=== PATIENT | male | born 1945 | race Hispanic/Latino ===

== ENCOUNTER 2017-10-04 11:46 | Observation (INO) | payer OTHER ==
--- NOTE | 2017-10-01 14:55 | Diagnostic Imaging Report ---
PROCEDURE: Frontal and lateral views of the chest. COMPARISON: None. INDICATIONS: PREOP FINDINGS: Lines/tubes: None. Lungs: The lungs are well inflated and clear. There is no evidence of pneumonia or pulmonary edema. Pleura: There is no pleural effusion or pneumothorax. Heart and mediastinum: The heart and the mediastinum are normal. Median sternotomy wires. mildly thickened right paratracheal stripe. Bones: No acute bony abnormality. IMPRESSION: 1. No acute cardiopulmonary disease. Dictated by: Idris Gómez M.D. on 10/01/2017 at 15:03 Electronically approved by: Idris Gómez M.D. on 10/01/2017 at 15:03
[2017-10-01 15:10] LABS: BASOPHILS % 0.8 % (0.0-1.0); EOSINOPHILS # (AUTO) 0.2 (0.0-0.4); EOSINOPHILS % 2.9 % (0.0-6.0); HEMATOCRIT 41.7 % (38.2-49.6); HEMOGLOBIN 14.1 g/dL (14.0-18.0); LYMPHOCYTES # (AUTO) 1.9 (1.0-3.2); LYMPHOCYTES % 35.8 % (18.0-39.1); MEAN CORPUSCULAR HEMOGLOBIN 29.6 pg (28-32); MEAN CORPUSCULAR HGB CONC 33.8 g/dL (31-35); MEAN CORPUSCULAR VOLUME 87.4 fL (81-99); MONOCYTES # (AUTO) 0.5 (0.2-0.8); MONOCYTES % 10.1 % (4.4-11.3); NEUTROPHILS # (AUTO) 2.6 (2.1-6.9); NEUTROPHILS % 50.2 % (38.7-80.0); PLATELET COUNT 235 x10e3/uL (140-360); RED BLOOD COUNT 4.77 x10e6/uL (4.3-5.7); RED CELL DISTRIBUTION WIDTH 13.4 % (11.7-14.4)
[~2017-10-04] VITALS: Ht 165.1 cm; Wt 70.3 kg
[~2017-10-04 11:46] MED LIST: ASPIR 8181 MG PO; CALCIUM ACETAT667 MG PO; CLONIDINE HCL0.1 MG PO; LISINOPRIL20 MG PO; LOVASTATIN20 MG PO
[2017-10-04] MEDS ORDERED: CEFAZOLIN SOD 1 GM/NS 50ML 50 ML IV ONE (11:47)
[2017-10-04] MEDS ORDERED: CLINDAMYCIN 300MG 50 ML IV ONE (11:48)
[2017-10-04] MEDS ORDERED: GENTAMICIN SULFATE 160 MG in SODIUM CHLORIDE 0.9% 100 ML 100 ML IV SCH (12:00)
[2017-10-04] MEDS: SOD CHL 0.45%/POT CHL 20MEQ 1,000 ML IV SCH ×2 (15:11→18:36)
[2017-10-04] MEDS ORDERED: ACETAMINOPHEN 1000 MG/100 ML IV PRN (15:15)
[2017-10-04] MEDS ORDERED: DIPHENHYDRAMINE HCL INJ 50 MG/ML VIAL IM PRN (15:15)
[2017-10-04] MEDS ORDERED: DIPHENHYDRAMINE HCL 25 MG CAP PO PRN (15:15)
[2017-10-04] MEDS ORDERED: NALOXONE HCL INJ 0.4 MG/ML AMP IV PRN (15:15)
[2017-10-04] MEDS ORDERED: ONDANSETRON HCL INJ 2 MG/ML VIAL IV PRN (15:15)
[2017-10-04] MEDS ORDERED: BELLADONNA/OPIUM 60 MG SUPP PR PRN (15:15)
[2017-10-04] MEDS ORDERED: CEFTRIAXONE SOD 1 GM VIAL IV SCH ×2 (15:15→16:30)
[2017-10-04 16:00] VITALS: BP 141/74
[2017-10-04] MEDS ORDERED: WATER STERILE 10 ML VIAL INJ PRN (16:30)
[2017-10-04] MEDS: DOCUSATE SODIUM 100 MG CAP PO SCH (17:15)
[2017-10-04] MEDS ORDERED: HYDROCODONE/APAP 10MG-325MG TAB PO PRN (17:30)
[2017-10-04 17:42] VITALS: BP 141/74
[2017-10-04] MEDS ORDERED: NEOSTIGMINE 5 MG/5ML SYR ONE (17:49)
[2017-10-04] MEDS ORDERED: GLYCOPYRROLATE INJ 1MG/ 5 ML SYR ONE (17:49)
[2017-10-04] MEDS ORDERED: DESFLURANE 240 ML BTL INH ONE (17:49)
[2017-10-04] MEDS ORDERED: ROCURONIUM BROMIDE 10 MG/ML 5ML VIAL ONE (17:49)
[2017-10-04] MEDS ORDERED: PROPOFOL IV EMULSION 10 MG/ML 20 ML VIAL ONE (17:49)
[2017-10-04] MEDS ORDERED: DEXAMETHASONE SOD PHOS INJ 4 MG/ML VIAL ONE (17:49)
[2017-10-04] MEDS ORDERED: LIDOCAINE HCL 2% LOCAL INJ 5 ML SDV VIAL INJ ONE (17:49)
[2017-10-04] MEDS ORDERED: FENTANYL CITRATE/PF 100MCG/2 ML INJ ONE (18:11)
[2017-10-04] MEDS ORDERED: MIDAZOLAM HCL 2 MG/2 ML VIAL ONE (18:11)
--- NOTE | 2017-10-04 18:28 | History and Physical ---
WELL FLOW OPERATOR: Dr. Reagan Mayberry. PRIMARY CARE PHYSICIAN: ____ [place]. CHIEF COMPLAINT: Impotence status post failed penile implantation with status post cystoscopy and TURP. HISTORY: This is a 72-year-old male with impotence and enlarged prostate. The patient was scheduled for penile implant, but because of the structure of the urinary bladder and the penis the patient's procedure was unsuccessful, but he did have the area repaired and prepped for another surgery at a later date. The patient is otherwise stable at this time. He has baseline hypogonadism with incomplete urinary bladder emptying secondary to urinary bladder neck obstruction. He also has enlarged prostate status post prostatectomy. Patient also has prostate cancer by history with post radiation treatment as well. Overall the patient is stable at this time. PAST MEDICAL HISTORY: As above, hypertension. MEDICATIONS: Aspirin, calcium acetate and Zestril. ALLERGIES: NO KNOWN DRUG ALLERGIES. SOCIAL HISTORY: Patient does not smoke or use alcohol. No recreational drugs. REVIEW OF SYSTEMS: Postop pain, adequate. PHYSICAL EXAMINATION: . GENERAL: The patient is not in acute distress. He is awake. VITAL SIGNS: Temperature 97, blood pressure 101/74, pulse rate 63, respirations 20. HEENT: Normocephalic, atraumatic, anicteric. NECK: Supple. PULMONARY: Clear. CARDIOVASCULAR: Regular rate and rhythm. ABDOMEN: Soft. : Shepherd catheter in place, irrigating. EXTREMITIES: No cyanosis or edema. NEUROLOGIC: No focal deficit. LABORATORY: None today but on October 01, 2017, the WBC is otherwise unremarkable. IMPRESSION 1. Status post cystoscopy with urinary bladder neck narrowing repair, cystoscopy. 2. Failed penile implant due to structural problems as mentioned. PLAN: Continue with postoperative care. The patient will follow up with Dr. Reagan Mayberry for further planning in the near future. In the meantime he is stable. Job#: [id number]
[2017-10-04 20:00] VITALS: BP 115/66
[2017-10-05] VITALS: BP 103/59
[2017-10-05 04:00] VITALS: BP 115/60
[2017-10-05 07:06] LABS: BASOPHILS % 0.1 % (0.0-1.0); HEMATOCRIT 39.7 % (38.2-49.6); HEMOGLOBIN 13.4 g/dL (14.0-18.0); MEAN CORPUSCULAR HEMOGLOBIN 28.9 pg (28-32); MEAN CORPUSCULAR HGB CONC 33.8 g/dL (31-35); MEAN CORPUSCULAR VOLUME 85.7 fL (81-99); MONOCYTES # (AUTO) 0.5 (0.2-0.8); MONOCYTES % 6.6 % (4.4-11.3); NEUTROPHILS # (AUTO) 5.9 (2.1-6.9); NEUTROPHILS % 79.9 % (38.7-80.0); PLATELET COUNT 219 x10e3/uL (140-360); RED BLOOD COUNT 4.63 x10e6/uL (4.3-5.7); RED CELL DISTRIBUTION WIDTH 13.3 % (11.7-14.4)
[2017-10-05 07:28] LABS: ANION GAP 9.8 mmol/L (8-16); BLOOD UREA NITROGEN 17 mg/dL (7-26); BUN/CREATININE RATIO 18 (6-25); CARBON DIOXIDE 25 mmol/L (22-29); CHLORIDE 107 mmol/L (98-107); CREATININE, SERUM 0.95 mg/dL (0.72-1.25); EST GLOMERULAR FILTRATION RATE > 60 ML/MIN (60-); GLUCOSE 113 mg/dL (74-118); POTASSIUM 4.8 mmol/L (3.5-5.1); SODIUM 137 mmol/L (136-145)
[2017-10-05 08:00] VITALS: BP 129/60
[2017-10-05] MEDS: DOCUSATE SODIUM 100 MG CAP PO SCH (08:50)
[2017-10-05] MEDS ORDERED: WATER STERILE 10 ML VIAL IV SCH (11:30)
[2017-10-05 12:09] VITALS: BP 134/69
[2017-10-05] MEDS ORDERED: TYLENOL WITH C1 EACH PO (14:10)
[2017-10-05] MEDS ORDERED: CEFUROXIME500 MG PO (14:11)
--- NOTE | 2017-10-05 16:22 | Discharge Summary ---
PRIMARY CARE PHYSICIAN: Dr. Jing Shrestha. CHIEF OPTOMETRY SERVICE: Dr. Reagan Mayberry. FINAL DIAGNOSES: 1. Status post cystoscopy with urinary bladder neck stenosis repair. 2. Impotency. 3. Unsuccessful placement of a penile prosthesis. SUMMARY: Patient is a 72-year-old male who came in for a possible placement of penile prosthesis. However, the patient has urinary bladder neck stenosis, difficult procedures. Patient subsequently had urinary neck bladder repair. Please review Dr. Reagan Mayberry's operating note for the correctness of these procedures. The dictation for the operating note is still pending. The patient is stable. Otherwise, medically stable to go home. He is comfortable today. Shepherd catheter will be discontinued once he is able to urinate and the patient will go home today. He will resume his home medications. Prescription given by Dr. Reagan Mayberry. Job#: [id number] GH
--- NOTE | 2017-11-29 09:17 | Operative Report ---
DATE OF PROCEDURE: October 04, 2017 PREOPERATIVE DIAGNOSIS: Organic impotence. POSTOPERATIVE DIAGNOSES: 1. Organic impotence. 2. 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 OPERATION PERFORMED: Cystourethroscopy with transurethral resection of severe bladder neck contracture. ANESTHESIA: General. COMPLICATIONS: None. CLINICAL SUMMARY: Aquilino Muniz is a 72-year-old man who has had a complicated urological history. The patient has had 3 previous transurethral resections of prostate procedures. He has also had transurethral resection of his bladder neck contracture on 3 different occasions. The patient subsequently also underwent external beam radiotherapy in 2011. The patient is brought to the operating room today for placement of a penile prosthesis due to organic impotence that was refractory to all other forms of management. Plans were there to perform this procedure for definitive management of his impotence. He is aware of the risks of bleeding, infection, injury to adjacent structures, need for additional procedures, and the fact that he will have a permanent implant. He understood all these risks and elected to proceed. OPERATIVE PROCEDURE IN DETAIL: Informed consent was verified. Aquilino Muniz was properly identified, taken to the operating room and placed on the operating table in supine position. Anesthesia was uneventfully begun. The patient's genitalia were shaved, and the patient's abdomen and genitalia were prepared and draped in usual sterile fashion. Attempt was made to place the Shepherd catheter and this attempt was unsuccessful. We therefore repositioned the patient in dorsal lithotomy position with all pressure points well padded. Cystoscopy was performed. We entered the patient's urethra. We guided the cystoscope through the patient's normal urethra through the sphincteric region and into the prostate bed. The prostate bed appeared wide open, but there was a severe bladder neck contracture. It was obvious that this needed management prior to placement of the penile prosthesis. We removed the cystoscope sheath and replaced it with the resectoscope sheath. We then utilized the Paolo knife electrode to incise the bladder neck at the 5 and 7 o'clock position down past the scar tissue into friable non-scar tissue. This resulted in a wide opening of the patient's bladder neck contracture and resolution thereof. Panendoscopy of the urinary bladder revealed no suspicious mucosal lesions, no tumors, trabeculations were noted. The resectoscope was withdrawn. The Shepherd catheter was placed. It was irrigated to and fro to ensure it worked properly, and the patient was uneventfully reversed from anesthesia and taken to recovery room in stable condition. There were no complications to the procedure. He tolerated the procedure well. Plans will be to admit the patient for observation and discharge the patient following morning should he have no problems. Plans will then be to monitor the patient for the next several months. After approximately 2 months, we plan to perform cystoscopy again to ensure his bladder neck is no longer obstructed. If that is the case, then there should be no reason why we cannot resume our plan of implantation of the penile prosthesis. Job#: [id number]
== END 2017-10-05 14:29 | disposition home or self-care (01) ==
LOC: OR 11:46 → MED/SURG2 15:41 → MED/SURG 15:53
PROVIDERS: ADMIT Internal Medicine; ATTEND Internal Medicine
DX: N40.1 Benign prostatic hyperplasia with lower urinary tract symptoms (principal); N13.8 Other obstructive and reflux uropathy; N52.9 Male erectile dysfunction, unspecified; I10 Essential (primary) hypertension
CPT/HCPCS: 36415 ×2; 52500; 71020; 80048; 85025 ×2; 93005; G0378 ×2; J0696; J1100; J1580; J2001; J2250

== ENCOUNTER 2018-01-03 11:23 | Observation (INO) | payer OTHER ==
[2017-12-31 10:40] LABS: BASOPHILS % 0.8 % (0.0-1.0); EOSINOPHILS # (AUTO) 0.1 (0.0-0.4); EOSINOPHILS % 2.3 % (0.0-6.0); HEMATOCRIT 40.3 % (38.2-49.6); HEMOGLOBIN 13.5 g/dL (14.0-18.0); LYMPHOCYTES # (AUTO) 1.6 (1.0-3.2); LYMPHOCYTES % 31.7 % (18.0-39.1); MEAN CORPUSCULAR HEMOGLOBIN 28.6 pg (28-32); MEAN CORPUSCULAR HGB CONC 33.5 g/dL (31-35); MEAN CORPUSCULAR VOLUME 85.4 fL (81-99); MONOCYTES # (AUTO) 0.7 (0.2-0.8); NEUTROPHILS # (AUTO) 2.7 (2.1-6.9); PLATELET COUNT 255 x10e3/uL (140-360); RED BLOOD COUNT 4.72 x10e6/uL (4.3-5.7); RED CELL DISTRIBUTION WIDTH 13.6 % (11.7-14.4)
[~2018-01-03] VITALS: Ht 162.6 cm; Wt 79.8 kg
[~2018-01-03 11:23] MED LIST changes: +CEFUROXIME500 MG PO; +LOVASTATIN10 MG PO; +TYLENOL WITH C1 EACH PO
[2018-01-03] MEDS ORDERED: GENTAMICIN 80MG/NS 100 ML 200 ML IV ONE (11:26)
[2018-01-03] MEDS ORDERED: LEVOFLOXACIN 500MG/D5W 100ML 100 ML IV ONE (11:26)
[2018-01-03] MEDS ORDERED: CLINDAMYCIN PHOS 900MG/ D5W 50 50 ML IV ONE (11:26)
--- OUTSIDE RECORDS SUMMARY | 2018-01-03 11:26 | XMS REPORT ---
Author Author [facility] Address Unknown Phone Unavailable Care Team Providers Care Overhauler Helper Name Role Phone LEAH URENA Unavailable Unavailable Problems This patient has no known problems. Allergies, Adverse Reactions, Alerts This patient has no known allergies or adverse reactions. Medications This patient has no known medications. Results Test Description Test Time Test Comments Text Results Atomic Results Result Comments CHEST 2 VIEWS [place] [address] Patient Name: FELICIA KWOK MR #: [id number] : 1945 Age/Sex: 72/M Req # : [id number] Adm Physician: Ordered by: LEAH URENA MD Report #: [id number] Location: OR Room/Bed: Procedure: [id number] DX/CHEST 2 VIEWS Exam Date: 10/01/17 Exam Time: 1435 REPORT STATUS: Signed PROCEDURE: Frontal and lateral views of the chest. COMPARISON: None. INDICATIONS: PREOP FINDINGS : Lines/tubes: None. Lungs: The lungs are well inflated and clear. There is no evidence of pneumonia or pulmonary edema. Pleura: There is no pleural effusion or pneumothorax. Heart and mediastinum: The heart and the mediastinum are normal. Median sternotomy wires. mildly thickened right paratracheal stripe. Bones: No acute bony abnormality. IMPRESSION: 1. No acute cardiopulmonary disease. Dictated by: Idris Gómez M.D. on 10/01/2017 at 15:03 Electronically approved by: Idris Gómez M.D. on 10/01/2017 at 15:03 Dictated By: IDRIS GÓMEZ MD 1503 Transcribed By: JAYY on 10/01/17 1503 COPY TO: LEAH URENA MD
--- OUTSIDE RECORDS SUMMARY | 2018-01-03 11:26 | XMS REPORT | Clinical Summary ---
Author Author [facility] Address Unknown Phone Unavailable Care Team Providers Care Histologic Aide Name Role Phone Christina Shrestha MD PCP Allergies No Known Allergies Current Medications Prescription Sig. Disp. Refills Start End Date Status Date lisinopril Take 5 mg by mouth daily. Active (PRINIVIL,ZESTRIL) 5 mg tablet omeprazole (PriLOSEC) 10 TAKE 1 CAPSULE(10 MG) BY 90 capsule 1 Active MG capsuleIndications: MOUTH DAILY 17 Pharyngitis, chronic omeprazole (PriLOSEC) 10 TAKE 1 CAPSULE(10 MG) BY 30 capsule 0 Active MG capsuleIndications: MOUTH DAILY 17 Pharyngitis, chronic amoxicillin (AMOXIL) 250 Take 5 mL (250 mg total) 75 mL 0 03/08/20 03/13/20 mg/5 mL suspension by mouth 3 (three) times 17 17 a day for 5 days. omeprazole (PriLOSEC) 10 Take 1 capsule (10 mg 30 capsule 1 05/17/20 05/17/20 Discontin MG capsuleIndications: total) by mouth daily for 17 17 ued Pharyngitis, chronic 60 days. Active Problems Problem Noted Date Pharyngitis, chronic 05/17/2017 Encounters Date Type Specialty Care Team Description 07/22/2017 Refill Otolaryngology Lavell Kaufman MD Pharyngitis, chronic 06/24/2017 Office Visit Otolaryngology Lavell Kaufman MD Pharyngitis, chronic (Primary Dx) 05/17/2017 Office Visit Otolaryngology Lavell Kaufman MD Pharyngitis, chronic (Primary Dx) 05/17/2017 Refill Otolaryngology Lavell Kaufman MD Pharyngitis, chronic 03/08/2017 [facility] General Surgery Lavell Kaufman MD Other diseases of vocal Encounter cords 03/08/2017 Anesthesia General Surgery Farhad Sims Event 03/08/2017 Procedure Pass General Surgery 03/08/2017 Surgery General Surgery Lavell Kaufman MD LARYNGOSCOPY, DIRECT MICRO WITH BIOPSY 02/22/2017 [facility] Radiology Lavell Kaufman MD Other diseases of vocal Encounter cords after 01/02/2017 Family History Relation Name Status Comments Father Mother Social History Tobacco Use Types Packs/Day Years Used Date Former Smoker Cigarettes 1 15 Smokeless Tobacco: Never Used Alcohol Use Drinks/Week oz/Week Comments No Sex Assigned at Date Recorded Not on file Last Filed Vital Signs Vital Sign Reading Time Taken Blood Pressure 122/71 06/24/2017 9:54 AM CDT Pulse 67 06/24/2017 9:54 AM CDT Temperature 36.3 C (97.4 F) 03/08/2017 11:14 AM CDT Respiratory Rate 18 03/08/2017 11:45 AM CDT Oxygen Saturation 98% 03/08/2017 11:45 AM CDT Inhaled Oxygen - - Concentration Weight 73 kg (161 lb) 06/24/2017 9:54 AM CDT Height 157.5 cm (5' 2") 06/24/2017 9:54 AM CDT Body Mass Index 29.45 06/24/2017 9:54 AM CDT Plan of Treatment Health Maintenance Due Date Last Done Comments COLONOSCOPY 01/07/1994 ZOSTER VACCINE 2004 PNEUMOCOCCAL 01/07/2009 POLYSACCHARIDE VACCINE AGE 65 AND OVER PNEUMOCOCCAL-13 01/07/2009 INFLUENZA VACCINE 05/25/2017 Procedures Procedure Name Priority Date/Time Associated Diagnosis Comments MD AN ELECTIVE Routine 03/08/2017 ENDOTRACHEAL AIRWAY 10:01 AM CDT Procedure Note - Farhad Sims - 03/08/2017 10:00 AM CDT Airway Date/Time: 03/08/2017 9:39 AM Performed by: ERENDIRA MALONE Authorized by: ERENDIRA MALONE Location: OR Urgency: Elective Difficult Airway: No Anesthesio logist: ERENDIRA MALONE Other Anesthesia Staff: FARHAD SIMS Performed by: anesthesio logist and other anesthesia staff Preoxygena frank with 100% O2: Yes C-spine Precaution s Maintained Throughout : Yes Mask Ventilatio n: Easy mask Final Airway Type: Endotrache al airway Final Endotrache al Airway: ETT Cuffed: Yes Technique Used: Direct laryngosco py Devices/Me thods Used in Placement: Intubatin g stylet Insertion Site: Oral Blade Type: Vinson Laryngosco pe Blade/Srikanth olaryngosc ope Blade Size: 2 ETT Size (mm): 7.5 Cuff at minimum occlusion pressure: Yes Measured from: Teeth ETT to Teeth (cm): 21 Placement Verified by: CO2 detection, direct visualizat ion and equal breath sounds Laryngosco pic view: Grade IIa - partial view of glottis Rapid Sequence Induction (RSI): No Modified RSI: No Number of Attempts at Approach: 1 TONSILLECTOMY 03/08/2017 DISEASE OF VOCAL 8:45 AM CDT CORD,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 LARYNGOSCOPY, DIRECT 03/08/2017 DISEASE OF VOCAL MICRO WITH BIOPSY 8:45 AM CDT CORD,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 Status post median sternotomy. Heart size and pulmonary vasculature are normal. Lungs are clear. No effusion or pneumothorax noted. There are degenerative changes in the spine. [facility]-[id number] Procedure Note Interface, Radiology Results Incoming - 02/22/2017 10:21 AM CDT EXAMINATION: XR CHEST 2 VW CLINICAL HISTORY: Preoperative evaluation COMPARISON: 05/30/2006 IMPRESSION: No active disease in the chest. Status post median sternotomy. Heart size and pulmonary vasculature are normal. Lungs are clear. No effusion or pneumothorax noted. There are degenerative changes in the spine. [facility]-[id number] * ECG 12 lead (02/22/2017 9:36 AM) Component Value Ref Range Ventricular rate 55 Atrial rate 55 MD interval 178 QRSD interval 96 QT interval 410 QTC interval 392 P axis 1 48 QRS axis 1 31 T wave axis 60 EKG impression Sinus bradycardia-Possible Left atrial enlargement-Abnormal ECG-No previous ECGs available- Specimen Performing Laboratory [facility] [address] [address] [place] [address] * Partial thromboplastin time, activated (02/22/2017 9:11 AM) Component Value Ref Range PTT 27.9 23.0 - 36.0 sec Comment: PTT therapeutic range for unfractionated heparin is 61.0-112.0 seconds which corresponds to Anti-Xa 0.3-0.7 U/ml. Specimen Performing Laboratory Blood [facility] DEPARTMENT OF PATHOLOGY AND GENOMIC MEDICINE [id number] [place] [address] [place] [address] * Prothrombin time with INR (02/22/2017 9:11 AM) Component Value Ref Range Prothrombin time 13.4 12.0 - 15.0 sec INR 1.0 Comment: The International Normalized Ratio (INR) is a therapeutic monitoring tool for patients who are stable on oral anticoagulant therapy. An INR of 2.0-3.0 is suggested for deep vein thrombosis/pulmonary embolism. Specimen Performing Laboratory Blood [facility] DEPARTMENT OF PATHOLOGY AND GENOMIC MEDICINE [id number] [place] [address] [place] [address] * CBC hemogram (02/22/2017 9:11 AM) Component Value Ref Range WBC 5.09 4.50 - 11.00 k/uL RBC 4.97 4.40 - 6.00 m/uL HGB 14.1 14.0 - 18.0 g/dL HCT 42.6 41.0 - 51.0 % MCV 85.7 82.0 - 100.0 fL MCH 28.4 27.0 - 34.0 pg MCHC 33.1 31.0 - 37.0 g/dL RDW - SD 44.6 37.0 - 55.0 fL MPV 11.3 8.8 - 13.2 fL Platelet count 237 150 - 400 k/uL Nucleated RBC 0.00 /100 WBC Specimen Performing Laboratory Blood [facility] DEPARTMENT OF PATHOLOGY AND [facility] MEDICINE [id number] [place] [address] [place] [address] after 01/02/2017 Insurance Payer Benefit Subscriber ID Type Phone Address Plan / Group [employer] xxxxxxxxx [facility]
[2018-01-03] MEDS ORDERED: ONDANSETRON HCL INJ 2 MG/ML VIAL ONE (11:27)
[2018-01-03] MEDS ORDERED: DEXAMETHASONE SOD PHOS INJ 4 MG/ML VIAL ONE (11:27)
[2018-01-03] MEDS ORDERED: LIDOCAINE HCL 2% LOCAL INJ 5 ML SDV VIAL INJ ONE (11:27)
[2018-01-03] MEDS ORDERED: SEVOFLURANE INHAL SOLN 250 ML PEN BTL ONE (11:27)
[2018-01-03] MEDS ORDERED: PROPOFOL IV EMULSION 10 MG/ML 20 ML VIAL ONE (11:27)
[2018-01-03] MEDS ORDERED: MUPIROCIN 2% OINT 22 GM TUBE ONE (13:09)
[2018-01-03] MEDS ORDERED: BACITRACIN 50,000 UNIT VIAL ONE (13:09)
[2018-01-03] MEDS ORDERED: BUPIVACAINE HCL 0.5% INJ 30 ML VIAL INJ ONE (14:05)
[2018-01-03] MEDS ORDERED: FENTANYL CITRATE/PF 100MCG/2 ML INJ ONE (15:03)
[2018-01-03] MEDS ORDERED: MORPHINE SULFATE 1 MG/ML 30ML PCA IV PRN (16:00)
[2018-01-03] MEDS ORDERED: ACETAMINOPHEN 1000 MG/100 ML IV PRN (16:00)
[2018-01-03] MEDS ORDERED: DIPHENHYDRAMINE HCL INJ 50 MG/ML VIAL IM PRN (16:00)
[2018-01-03] MEDS ORDERED: DIPHENHYDRAMINE HCL 25 MG CAP PO PRN (16:00)
[2018-01-03] MEDS ORDERED: NALOXONE HCL INJ 0.4 MG/ML AMP IV PRN (16:00)
[2018-01-03] MEDS ORDERED: ONDANSETRON HCL INJ 2 MG/ML VIAL IV PRN (16:00)
[2018-01-03] MEDS ORDERED: MORPHINE SULFATE 1 MG/ML 30ML PCA ONE (16:17)
--- OUTSIDE RECORDS SUMMARY | 2018-01-03 16:48 | XMS REPORT | Clinical Summary ---
Author Author [facility] Address Unknown Phone Unavailable Care Team Providers Care Psychiatric Social Worker Supervisor Name Role Phone Christina Shrestha MD PCP [...] Otolaryngology Lavell Kaufman MD Pharyngitis, chronic 03/08/2017 [facility] General Surgery Lavell Kaufman MD Other diseases of vocal Encounter cords 03/08/2017 Anesthesia General Surgery Farhad Sims Event 03/08/2017 Procedure Pass General Surgery 03/08/2017 Surgery General Surgery Lavell Kaufman MD LARYNGOSCOPY, DIRECT MICRO WITH BIOPSY 02/22/2017 [facility] Radiology Lavell Kaufman MD Other diseases of [...] Procedure Name Priority Date/Time Associated Diagnosis Comments NC AN ELECTIVE Routine 03/08/2017 ENDOTRACHEAL AIRWAY 10:01 [...] for PDF Lab Report Specimen Performing Laboratory [facility] DEPARTMENT OF PATHOLOGY AND GENOMIC MEDICINE [id number] [place] [address] [place] [address] * XR Chest 2 Vw (02/22/2017 10:10 AM) Specimen Performing Laboratory [facility] [address] [place] [address] Narrative EXAMINATION:XR CHEST 2 VW CLINICAL HISTORY:Preoperative evaluation COMPARISON:05/30/2006 IMPRESSION: No active disease in the chest. Status post median sternotomy. Heart size and pulmonary vasculature are normal. Lungs are clear. No effusion or pneumothorax noted. There are degenerative changes in the spine. [facility]-[id number] Procedure Note Interface, Radiology Results Incoming - 02/22/2017 10:21 AM CDT EXAMINATION: XR CHEST 2 VW CLINICAL HISTORY: Preoperative evaluation COMPARISON: 05/30/2006 IMPRESSION: No active disease in the chest. Status post median sternotomy. Heart size and pulmonary vasculature are normal. Lungs are clear. No effusion or pneumothorax noted. There are degenerative changes in the spine. [facility]-[id number] * ECG 12 lead (02/22/2017 9:36 AM) Component Value Ref Range Ventricular rate 55 Atrial rate 55 NC interval 178 QRSD interval 96 QT interval 410 QTC interval 392 P axis 1 48 QRS axis 1 31 T wave axis 60 EKG impression Sinus bradycardia-Possible Left atrial enlargement-Abnormal ECG-No previous ECGs available- Specimen Performing Laboratory [facility] [address] [place] [address] * Partial thromboplastin time, activated (02/22/2017 9:11 AM) Component Value Ref Range PTT 27.9 23.0 - 36.0 sec Comment: PTT therapeutic range for unfractionated heparin is 61.0-112.0 seconds which corresponds to Anti-Xa 0.3-0.7 U/ml. Specimen Performing Laboratory Blood [facility] DEPARTMENT OF PATHOLOGY AND GENOMIC MEDICINE [id number] [place] [address] [place] [address] * Prothrombin time with INR (02/22/2017 9:11 AM) Component Value Ref Range Prothrombin time 13.4 12.0 - 15.0 sec INR 1.0 Comment: The International Normalized Ratio (INR) is a therapeutic monitoring tool for patients who are stable on oral anticoagulant therapy. An INR of 2.0-3.0 is suggested for deep vein thrombosis/pulmonary embolism. Specimen Performing Laboratory Blood [facility] DEPARTMENT OF PATHOLOGY AND GENOMIC MEDICINE [id number] [place] [address] [place] [address] * CBC hemogram (02/22/2017 9:11 AM) Component [...] 0.00 /100 WBC Specimen Performing Laboratory Blood [facility] DEPARTMENT OF PATHOLOGY AND [facility] MEDICINE [id number] [place] [address] [place] [address] after 01/02/2017 Insurance Payer Benefit Subscriber ID Type Phone Address Plan / Group [employer] xxxxxxxxx [facility]
[2018-01-03 17:12] VITALS: BP 146/70
[2018-01-03] MEDS: DOCUSATE SODIUM 100 MG CAP PO SCH (17:46)
[2018-01-03 19:45] VITALS: BP 146/70
[2018-01-03 20:00] VITALS: BP 110/66
[2018-01-03] MEDS: D5.45%NS/KCL 20MEQ 1,000 ML IV SCH (22:22)
[2018-01-03] MEDS: PIPERACILLIN/TAZO 2.25 GM 50 ML IV SCH (22:24)
[2018-01-03] MEDS: CLINDAMYCIN 300MG 50 ML IV SCH (22:31)
[2018-01-03 22:38] VITALS: BP 110/66
[2018-01-04] VITALS: BP 111/58
[2018-01-04 04:00] VITALS: BP 123/64
[2018-01-04] MEDS: D5.45%NS/KCL 20MEQ 1,000 ML IV SCH (04:33)
[2018-01-04] MEDS: PIPERACILLIN/TAZO 2.25 GM 50 ML IV SCH (05:00)
[2018-01-04] MEDS: CLINDAMYCIN 300MG 50 ML IV SCH (05:40)
[2018-01-04 06:25] LABS: BASOPHILS % 0.1 % (0.0-1.0); HEMATOCRIT 37.1 % (38.2-49.6); HEMOGLOBIN 12.4 g/dL (14.0-18.0); LYMPHOCYTES # (AUTO) 0.8 (1.0-3.2); MEAN CORPUSCULAR HEMOGLOBIN 28.6 pg (28-32); MEAN CORPUSCULAR HGB CONC 33.4 g/dL (31-35); MEAN CORPUSCULAR VOLUME 85.7 fL (81-99); MONOCYTES # (AUTO) 0.6 (0.2-0.8); MONOCYTES % 6.2 % (4.4-11.3); NEUTROPHILS % 85.4 % (38.7-80.0); PLATELET COUNT 233 x10e3/uL (140-360); RED BLOOD COUNT 4.33 x10e6/uL (4.3-5.7); RED CELL DISTRIBUTION WIDTH 13.6 % (11.7-14.4)
[2018-01-04 06:42] LABS: ANION GAP 12.5 mmol/L (8-16); BLOOD UREA NITROGEN 13 mg/dL (7-26); BUN/CREATININE RATIO 13 (6-25); CALCIUM 8.4 mg/dL (8.4-10.2); CARBON DIOXIDE 24 mmol/L (22-29); CHLORIDE 105 mmol/L (98-107); CREATININE, SERUM 0.97 mg/dL (0.72-1.25); EST GLOMERULAR FILTRATION RATE > 60 ML/MIN (60-); GLUCOSE 126 mg/dL (74-118); POTASSIUM 4.5 mmol/L (3.5-5.1); SODIUM 137 mmol/L (136-145)
[2018-01-04 07:46] VITALS: BP 117/63
[2018-01-04] MEDS ORDERED: ONDANSETRON HCL 4 MG ORAL DISINTEGRATING TAB PO PRN (08:30)
[2018-01-04] MEDS ORDERED: ACETAMINOPHEN/CODEINE 300MG - 30MG TAB PO PRN (08:30)
[2018-01-04] MEDS: DOCUSATE SODIUM 100 MG CAP PO SCH (08:44)
[2018-01-04 11:33] VITALS: BP 137/73
--- NOTE | 2018-02-24 02:38 | Operative Report ---
DATE OF PROCEDURE: January 03, 2018 PREOPERATIVE DIAGNOSES: 1. Organic impotence. 2. Recurrent bladder neck contracture. POSTOPERATIVE DIAGNOSES: 1. Organic impotence. 2. Recurrent bladder neck contracture. OPERATIONS PERFORMED: 1. Cystourethroscopy (separate procedure performed to ensure that the patient's bladder neck contracture is no longer clinically significant). 2. Implantation of multicomponent inflatable penile prosthesis (separate procedure performed for the organic impotence). ANESTHESIA: General. COMPLICATIONS: None. CLINICAL SUMMARY: Aquilino Muniz is a 72-year-old man with recurrent bladder neck contracture. He is status post transurethral resection of the prostate. The patient has organic impotence and has failed all forms of management attempts for his organic impotence. The patient elected to proceed with implantation of penile prosthesis. Previously, he was scheduled to have this done, however, he was found to have severe bladder neck contracture. He underwent transurethral resection of the bladder neck, and is brought to the operating room to both ensure the bladder neck contracture is no longer clinically significant as well as implant his penile prosthesis. He is aware of the risks of bleeding, infection, injury to adjacent structures, erosion, need for additional procedures, and irreversibility of this type of procedure. He understood all these risks and elected to proceed. OPERATIVE PROCEDURE IN DETAIL: Informed consent was verified. Aquilino Muniz was properly identified, taken to the operating room and placed on the operating table in supine position. Anesthesia was uneventfully begun. The patient's genitalia were shaved, prepared for 10 minutes and draped in usual sterile fashion. Flexible cystourethroscopy was performed. The flexible cystoscope was inserted under direct vision into the patient's urethra. It was guided down the unremarkable urethra through the normal sphincteric region, in the prostate bed, which was wide open, and there was minimum amount of scar tissue remaining, but the bladder neck contracture was no longer clinically significant. It was wide open at the bladder neck. Panendoscopy revealed trabeculations. There were no tumors. There were no suspicious lesions. The cystoscope was withdrawn. A Shepherd catheter was placed. A transverse penoscrotal incision was then made, carried through all layers of the scrotum. We isolated both corpora cavernosa. Incision was made in each corpora cavernosa and dilation was carried out. Following dilation, measurements bilaterally totalled 19 cm for both corpora cavernosa. We elected to proceed with an 18 cm cylinder with 1 cm rear-tip extenders. We pre-placed Vicryl sutures. We then placed the prosthesis cylinders into their respective corpora cavernosa and proceeded with placing of the distal tip well into the glans. The previously placed sutures were tied down thus achieving perfect hemostasis. At this point in time, subdartos pouch was developed for the pump and the pump was placed there. We then proceeded with placement of the reservoir. [place] was filled with 65 mL of saline and the final connections were made utilizing the Quick Connect system. Copious irrigation was performed at every layer of the closure. Copious irrigation was performed with antibiotic irrigant during the implantation. The scrotum was approximated in 4 layers utilizing absorbable suture. Sterile dressings were applied. Patient was then uneventfully reversed from anesthesia and taken to recovery room in stable condition. There were no complications to the procedure. Patient tolerated the procedure well. Sponge, needle, and instrument counts were quoted as correct x2 at the end of the case. The prosthesis was left partially inflated for hemostasis. We plan to proceed with keeping the patient overnight for observation, on intravenous antibiotics, and of course will follow the patient up in the office on an ongoing basis. Job#: [id number]
== END 2018-01-04 11:34 | disposition home or self-care (01) ==
LOC: OR 11:23 → IMCU 16:45
PROVIDERS: ADMIT Urology; ATTEND Urology
DX: N52.9 Male erectile dysfunction, unspecified (principal); I10 Essential (primary) hypertension; C61 Malignant neoplasm of prostate; N32.0 Bladder-neck obstruction; N18.9 Chronic kidney disease, unspecified; Z85.46 Personal history of malignant neoplasm of prostate; E78.5 Hyperlipidemia, unspecified; N28.9 Disorder of kidney and ureter, unspecified
CPT/HCPCS: 36415 ×3; 52000; 54405; 80048; 83735; 84132; 85025 ×2; C1813 ×2; G0378 ×2; J1100; J1580; J1956; J2001; J2270 ×2; J2405 ×2; J2543 ×2